=== PATIENT | male | born 1970 | race Caucasian/White ===

== ENCOUNTER 2018-08-02 09:03 | Emergency (ER) | payer BC ==
[2018-08-02] MEDS ORDERED: LIDOCAINE 5% (700 MG) TRANSDERMAL ADH..PATCH TP ONE (09:36)
[2018-08-02] MEDS ORDERED: HYDROMORPHONE HCL INJ/PF 2 MG/ML AMPULE IM ONE (09:36)
[2018-08-02] MEDS ORDERED: KETOROLAC TROMETHAMINE 60 MG/2 ML SDV IM ONE (09:36)
--- NOTE | 2018-08-02 09:40 | ER Document Report ---
HPI - HPI Patient complains to provider of: Low back pain Time Seen by Provider: 08/02/18 09:22 Onset: Last week Onset/Duration: Worse Quality of pain: Sharp Pain Level: 5 Context: Patient has a history of chronic low back pain and received a nerve block procedure per his pain management doctor on 07/26/2018 and 07/30/2018. Patient states that the pain initially was better after the injections and then after the medicine wore off he had much more severe pain. Patient states that he saw his pain management doctor yesterday and they gave him a shot of Toradol. Gisselle ross denies any improvement of his pain symptoms. Patient denies any fever or urinary symptoms. Patient does complain of radicular pain to the anterior aspect of his right leg. Patient denies any paresthesia. Patient states that he called his pain management office but the provider had not yet arrived today. Patient denies any new injury or fever. Associated Symptoms: Other - Low back pain, right leg pain. denies: Fever Exacerbated by: Standing, Movement, Walking Relieved by: Denies Similar symptoms previously: Yes Recently seen / treated by doctor: Yes - ROS ROS below otherwise negative: Yes Systems Reviewed and Negative: Yes All other systems reviewed and negative - CONSTITUTIONAL Constitutional: DENIES: Fever, Chills - NEURO Neurology: DENIES: Weakness - GASTROINTESTINAL Gastrointestinal: DENIES: Nausea - URINARY Urinary: DENIES: Dysuria, Urgency, Frequency - MUSCULOSKELETAL Musculoskeletal: REPORTS: Extremity pain, Back Pain. DENIES: Neck Pain - DERM Skin Color: Normal Skin Problems: None Past Medical History - General Information source: Patient - Social History Smoking Status: Never Smoker Frequency of alcohol use: None Drug Abuse: None Occupation: None Lives with: Family Family History: Reviewed & Not Pertinent - Past Medical History Cardiac Medical History: Reports: Hx Hypertension Endocrine Medical History: Reports: Hx Diabetes Mellitus Type 2 GI Medical History: Reports: Hx Irritable Bowel Musculoskeletal Medical History: Reports Other - Chronic back pain Past Surgical History: Reports: Hx Herniorrhaphy, Hx Inguinal Hernia, Hx Neurologic Surgery - Carpal tunnel, Other - Left knee syndrome, colectomy, UroLift Vertical Provider Document - CONSTITUTIONAL Agree With Documented VS: Yes Exam Limitations: No Limitations General Appearance: WD/WN, No Apparent Distress Notes: PHYSICAL EXAMINATION: GENERAL: Well-appearing, well-nourished and in no acute distress. HEAD: Atraumatic, normocephalic. EYES: sclera clear, anicteric, conjunctiva are normal. ENT: nares patent, Moist mucous membranes. NECK: Normal range of motion, supple no lymphadenopathy LUNGS: respirations unlabored HEART: Regular rate and rhythm without murmurs EXTREMITIES: Normal range of motion, no pitting or edema. No cyanosis. Gait normal, pt ambulates without difficulty BACK: Right lower lumbar paraspinal tenderness, no midline tenderness, mild ecchymosis around right paraspinal lumbar injection site, no overlying erythema. No deformities or step-offs. No CVA tenderness. NEUROLOGICAL: Cranial nerves grossly intact. Normal speech, normal gait. No saddle anesthesia. 2+ bilateral patellar reflexes PSYCH: Normal mood, normal affect. SKIN: Warm, Dry, normal turgor, no rashes or lesions noted. - INFECTION CONTROL TRAVEL OUTSIDE OF THE [place] IN LAST 30 DAYS: No Course - Re-evaluation Re-evalutation: 08/02/18 10:[address] Dunbar who recommends consultation with [facility] regarding patient's disposition and plan of care at this time. Consulted with patient's provider Dr. Arvizu who states that his injection sites looked fine and that all he had was a facet injection with lidocaine, states that we can give him a Medrol Dosepak and advised him that he can walk in the office on Sunday for further evaluation. States advising patient that he can come to the office at any point as there is always someone in the office working that can see him. No additional testing advised at this time. - Vital Signs Vital signs: Temp Pulse Resp BP Pulse Ox 98.3 F 80 16 127/66 H 97 08/02/18 09:09 08/02/18 09:09 08/02/18 09:09 08/02/18 09:09 08/02/18 09:09 Discharge - Discharge Clinical Impression: Chronic low back pain Qualifiers: Back pain laterality: right Sciatica presence: with sciatica Sciatica laterality: sciatica of right side Qualified Code(s): M54.41 - Lumbago with sciatica, right side Condition: Stable Disposition: HOME, SELF-CARE Instructions: Chronic Back Pain ([facility]), Ice Packs ([facility]), Low Back Pain ([facility]), Pain Medication Injection ([facility]) Additional Instructions: Return immediately for any new or worsening symptoms Followup with your primary care provider, call tomorrow to make a followup appointment Follow-up with your pain management doctor on Sunday. You can walk into the office Sunday morning for evaluation. Prescriptions: Methylprednisolone [Medrol Dosepack (4 mg/Tab) 21 Tab/Dosepak] 4 mg PO ASDIR PRN #21 tab.ds.pk PRN Reason: Referrals: RAEGAN HERNANDEZ PA-C [Primary Care Provider] - Follow up as needed [facility] [Provider Group] - Follow up as needed
[2018-08-02 11:05] VITALS: BP 106/57
== END 2018-08-02 11:06 | disposition home or self-care (01) ==
LOC: ER 09:03
DX: M54.41 Lumbago with sciatica, right side (principal); I10 Essential (primary) hypertension; E11.9 Type 2 diabetes mellitus without complications
CPT/HCPCS: 99283; 96372; J1885; J1170

== ENCOUNTER → 2019-11-15 | Outpatient (CLI) | payer BC ==
--- NOTE | 2019-11-15 18:04 | RADIOLOGY REPORT (SQ) ---
EXAM DESCRIPTION: MRI LUMBAR SPINE WITHOUT IMAGES COMPLETED DATE/TIME: 11/15/2019 10:06 am REASON FOR STUDY: (M54.16)RADICULOPATHY, LUMBAR REGION M54.16 RADICULOPATHY, LUMBAR REGION COMPARISON: None. TECHNIQUE: Sagittal and Axial imaging includes T1, T2, STIR and gradient echo sequences. Coronal T2/ HASTE imaging. LIMITATIONS: None. FINDINGS: VISUALIZED UPPER ABDOMEN: Limited evaluation. No acute or suspicious findings suggested. SEGMENTATION: No transitional anatomy. The lowest well-developed disc space is labeled L5-S1. ALIGNMENT: Anatomic. VERTEBRAE: Intact. BONE MARROW: Normal. No marrow replacement or reactive changes. DISC SIGNAL: Loss of height and T2 signal L4-5. POSTERIOR ELEMENTS: Generally intact. No pars defect evident. HARDWARE: None in the spine. CORD AND CONUS: Normal in size and signal intensity. Conus at the appropriate level. SOFT TISSUES: No aortic aneurysm seen. No bulky retroperitoneal adenopathy or mass. No paraspinal mas s or fluid. L1-L2: No significant spinal stenosis or exit foraminal stenosis. L2-L3: No significant spinal stenosis or exit foraminal stenosis. L3-L4: No significant spinal stenosis or exit foraminal stenosis. L4-L5: Broad-based disc bulge. Posterior element overgrowth. Moderate narrowing of both exit forami na and mild central canal stenosis. L5-S1: No significant spinal stenosis or exit foraminal stenosis. LOWER THORACIC: Incompletely imaged. No stenosis seen. SACRUM: Visualized upper sacrum intact. OTHER: No other significant findings. IMPRESSION: L4-5 with moderate narrowing of the exit foramina and mi central canal stenosis. TECHNICAL DOCUMENTATION: JOB ID: [id number] [employer]- All Rights Reserved Reading location - IP/workstation name: [email or web address]
== END ==
LOC: RAD 08:50
PROVIDERS: ATTEND Pain Medicine Pain Medicine
DX: M54.16 Radiculopathy, lumbar region (principal)
CPT/HCPCS: 72148

== ENCOUNTER 2019-12-11 07:01 | Day surgery (SDC) | payer OTHER, BC ==
[2019-12-04 11:50] LABS: ABSOLUTE EOSINOPHILS # (AUTO) 0.1 10^3/uL (0.0-0.6); ABSOLUTE LYMPHOCYTES (AUTO) 1.8 10^3/uL (0.5-4.7); ABSOLUTE MONOCYTES (AUTO) 0.5 10^3/uL (0.1-1.4); ABSOLUTE NEUT (AUTO) 4.8 10^3/uL (1.7-8.2); BASOPHILS % (AUTO) 0.4 % (0-2); HEMOGLOBIN 14.5 g/dL (13.5-17.0); LYMPHOCYTES % (AUTO) 24.9 % (13-45); MEAN CORPUSCULAR HEMOGLOBIN 30.8 pg (27.0-33.4); MEAN CORPUSCULAR HGB CONC 35.3 g/dL (32.0-36.0); MEAN CORPUSCULAR VOLUME 87 fl (80-97); MONOCYTES % (AUTO) 6.7 % (3-13); PLATELET COUNT 168 10^3/uL (150-450); RED CELL DISTRIBUTION WIDTH 12.6 % (11.5-14.0); TOTAL CELLS COUNTED % (AUTO) 100 %; WHITE BLOOD COUNT 7.2 10^3/uL (4.0-10.5)
[2019-12-04 12:21] LABS: ANION GAP 11 (5-19); BLOOD UREA NITROGEN 14 mg/dL (7-20); CARBON DIOXIDE 29 mmol/L (22-30); CHLORIDE 98 mmol/L (98-107); GLUCOSE 87 mg/dL (75-110); POTASSIUM 4.2 mmol/L (3.6-5.0)
--- NOTE | 2019-12-04 13:45 | EKG REPORT ---
SEVERITY:- NORMAL ECG - SINUS RHYTHM : Confirmed by: Ronny Son MD 04-Dec-2019 13:45:00
[~2019-12-11 07:01] MED LIST: CEFAZOLIN 2 GM/D5W RTU 2 GM/50 ML RTUPB IV PRN; LACTATED RINGERS 1000 ML IV PRN; LIDOCAINE 0.5% INJ-PF (5 MG/ML) 50 ML SDV SUBCUT PRN
[2019-12-11] MEDS ORDERED: CEFAZOLIN 2 GM/D5W RTU 2 GM/50 ML RTUPB IV ONE (07:10)
[2019-12-11 07:56] LABS: POTASSIUM 4.1 mmol/L (3.6-5.0)
[2019-12-11] MEDS ORDERED: LIDOCAINE 2% INJ-PF (20 MG/ML) 10 ML AMPUL ONE (08:35)
[2019-12-11] MEDS ORDERED: FENTANYL CITRATE INJ/PF 100 MCG/2 ML AMPUL ONE (08:35)
[2019-12-11] MEDS ORDERED: MIDAZOLAM 2 MG/2 ML INJ ONE (08:36)
[2019-12-11] MEDS ORDERED: PROPOFOL INJ 200 MG/20 ML VIAL IV ONE (08:36)
[2019-12-11] MEDS ORDERED: BUPIVACAINE INJ/PF LIPOSOME/PF 266 MG/20 ML SDV ONE (08:41)
[2019-12-11] MEDS ORDERED: FENTANYL CITRATE INJ/PF 100 MCG/2 ML AMPUL IV PRN ×3 (09:26)
[2019-12-11] MEDS ORDERED: DIPHENHYDRAMINE HCL 50 MG/ML VIAL IV PRN (09:26)
[2019-12-11] MEDS ORDERED: MEPERIDINE HCL/PF INJ 25 MG/1 ML DISP.SYRIN IV PRN (09:26)
[2019-12-11] MEDS ORDERED: MORPHINE SULFATE 10 MG/ML INJ IV PRN (09:26)
--- NOTE | 2019-12-11 10:05 | Operative Report ---
Nonrecallable Operative Report DATE OF SURGERY: 12/11/19 PREOPERATIVE DIAGNOSIS: Recurrent right inguinal hernia POSTOPERATIVE DIAGNOSIS: Recurrent right inguinal hernia OPERATION: Right groin exploration and repair of recurrent right inguinal hernia SURGEON: ROB NASH 1ST COACH TOUR DRIVER: DANILO MELLO ANESTHESIA: GA - Aiden TISSUE REMOVED OR ALTERED: None COMPLICATIONS: None INTRAOPERATIVE FINDINGS: Direct inguinal hernia PROCEDURE: Patient was brought to the operating awake alert stable condition placed in the operative table supine position induced under general anesthesia. After appropriate timeout and site verification the procedure commenced. Using a 10 blade a transverse incision was made in the right groin crease dissection was carried down through subcutaneous tissue with Bovie cautery. The external oblique fascia was opened in line with its fibers after was incised with a 10 blade. The cord was identified and was mobilized from the inguinal floor slung with a [place] drain. Patient had a lot of swelling in the medial aspect of the incision and it appeared that he had a direct inguinal hernia component that was not previously repaired. Or could have occurred since his laparoscopic hernia repair. The area of the direct inguinal component was mobilized with some fat within the hernia defect which was excised. We then used a piece of polypropylene mesh that was preformed mesh with a hole for the cord structures. It was fixed medially to the conjoined tendon laterally to the Poupart's ligament. This was done with 0 Ethibond sutures. The cord was examined for a hernia sac there was none. After fixation of the mass the Grover's fascia was reapproximated with interrupted 3-0 Vicryl and skin was reapproximated intracuticular 3-0 Biosyn Steri-Strips completed the procedure. Estimated blood loss was less than 10 cc sponge needle counts correct x2. LUIS Vizcaino was present for the entire procedure for help with wound retraction wound closure.
[2019-12-11] MEDS ORDERED: OXYCODONE-ACETAMINOPHEN 5-325 MG TABLET PO PRN (10:07)
--- NOTE | 2019-12-11 10:07 | Discharge Summary ---
Discharge Summary (SDC) - Discharge Final Diagnosis: right inguinal hernia Date of Surgery: 12/11/19 Discharge Date: 12/11/19 Condition: Good Prescriptions: Ibuprofen [Motrin 800 mg Tablet] 800 mg PO Q8H PRN #30 tab PRN Reason: Referrals: RAEGAN HERNANDEZ PA-C [Primary Care Provider] - Discharge Diet: As Tolerated Discharge Activity: No Lifting Over 10 Pounds Report the Following to Your Physician Immediately: Shortness of Breath, Nausea, Vomiting, Increase in Pain, Unusual Bleeding
[2019-12-11] MEDS ORDERED: ATROPINE SULFATE INJ 1 MG/10 ML DISP.SYRIN IV ONE (10:17)
[2019-12-11] MEDS: FENTANYL CITRATE INJ/PF 100 MCG/2 ML AMPUL ONE ×2 (10:22→10:27)
[2019-12-11] MEDS ORDERED: OXYCODONE-ACETAMINOPHEN 5-325 MG TABLET ONE (10:53)
[2019-12-11 13:18] VITALS: BP 110/69
[2019-12-11] MEDS ORDERED: ONDANSETRON HCL INJ/PF 4 MG/2 ML SDV ONE (15:37)
[2019-12-11] MEDS ORDERED: KETOROLAC TROMETHAMINE 60 MG/2 ML SDV ONE (15:37)
[2019-12-11] MEDS ORDERED: ROCURONIUM BROMIDE INJ 50 MG/5 ML VIAL IV ONE (15:37)
[2019-12-11] MEDS ORDERED: DEXAMETHASONE SOD PHOSPHATE INJ 4 MG/1 ML VIAL ONE (15:37)
[2019-12-11] MEDS ORDERED: GLYCOPYRROLATE 1 MG/5 ML VIAL ONE (15:37)
[2019-12-11] MEDS ORDERED: NEOSTIGMINE METHYLSULFATE 10 MG/10 ML VIAL ONE (15:37)
== END 2019-12-11 12:00 | disposition home or self-care (01) ==
LOC: OROUT 07:01
PROVIDERS: ATTEND Surgery
DX: K40.91 Unilateral inguinal hernia, without obstruction or gangrene, recurrent (principal); Z03.818 Encounter for observation for suspected exposure to other biological agents ruled out; I10 Essential (primary) hypertension; E11.9 Type 2 diabetes mellitus without complications; E78.00 Pure hypercholesterolemia, unspecified; K21.9 Gastro-esophageal reflux disease without esophagitis; Z79.899 Other long term (current) drug therapy; Z79.84 Long term (current) use of oral hypoglycemic drugs; Z79.82 Long term (current) use of aspirin
CPT/HCPCS: 93005; 36415 ×2; 82947; 84132; 85025; 87635; 80048; 83036; 93010; 00830; 49520; C1781; J2250; J0461; J3490 ×3; J1100; J1885; J3010; J2710; J2405; J2704; J0690; C9290; C9803; 830

== ENCOUNTER 2019-12-24 20:48 | Emergency (ER) | payer OTHER, BC ==
[2019-12-24] MEDS ORDERED: ONDANSETRON HCL INJ/PF 4 MG/2 ML SDV IV ONE (21:32)
[2019-12-24] MEDS ORDERED: MORPHINE SULFATE 10 MG/ML INJ IV ONE (21:32)
--- NOTE | 2019-12-24 21:34 | ER Document Report ---
ED Medical Screen (RME) - General Chief Complaint: Post Surgical Pain Stated Complaint: POST OP PAIN-ABDOMINAL PAIN Time Seen by Provider: 12/24/19 21:24 Primary Care Provider: RAEGAN HERNANDEZ PA-C [Primary Care Provider] - Follow up as needed TRAVEL OUTSIDE OF THE [place] IN LAST 30 DAYS: No - HPI Notes: 12/24/19 21:32 49-year-old male to the emergency department with complaints of progressively worsening postop abdominal pain over the last week. On December 10 he had an inguinal hernia repair by Dr. Kang. He states the first week he did pretty well and was vomiting up and up but then he started to feel pain in his right lower quadrant. He states that he has not had any fevers. He has had nausea but no vomiting. Called Dr. Kang's office and they thought that perhaps it was incisional swelling. He has been to see Dr. Kang on Sunday for postop appointment. He states that the pain got significant enough today that he did not feel comfortable waiting any longer to be seen. His last bowel movement was this morning and normal. He states he had a little bit of constipation directly after the surgery but has not had a lot of trouble since then. He has been pain management and takes Percocet 5 mg. His last dose of Percocet was at 5 PM today. I performed a brief medical screening exam on the patient determined that the patient needs further evaluation and management by main side provider. I have placed initial orders to help expedite care. - Related Data Allergies/Adverse Reactions: No Known Allergies Allergy (Verified 12/11/19 07:07) Past Medical History - Past Medical History Cardiac Medical History: Reports: Hx Hypercholesterolemia, Hx Hypertension Denies: Hx Coronary Artery Disease, Hx Heart Attack Pulmonary Medical History: Denies: Hx Asthma, Hx Bronchitis, Hx COPD, Hx Pneumonia Neurological Medical History: Denies: Hx Cerebrovascular Accident, Hx Seizures Endocrine Medical History: Reports: Hx Diabetes Mellitus Type 2 Renal/ Medical History: Denies: Hx Peritoneal Dialysis GI Medical History: Reports: Hx Irritable Bowel Musculoskeltal Medical History: Reports Hx Arthritis Past Surgical History: Reports: Hx Abdominal Surgery - Stomach surgery, Hx Herniorrhaphy, Hx Inguinal Hernia, Hx Neurologic Surgery - Carpal tunnel, Hx Urinary Tract Surgery - Uro Lifet procedure, Other - Left knee syndrome, colectomy, UroLift - Immunizations Hx Diphtheria, Pertussis, Tetanus Vaccination: Yes Physical Exam - Vital signs Vitals: Temp Pulse Resp BP Pulse Ox 97.7 F 83 20 119/62 97 12/24/19 20:56 12/24/19 20:56 12/24/19 20:56 12/24/19 20:56 12/24/19 20:56 Course - Vital Signs Vital signs: Temp Pulse Resp BP Pulse Ox 97.7 F 83 20 119/62 97 12/24/19 20:56 12/24/19 20:56 12/24/19 20:56 12/24/19 20:56 12/24/19 20:56 Doctor's Discharge - Discharge Referrals: RAEGAN HERNANDEZ PA-C [Primary Care Provider] - Follow up as needed
[2019-12-24 22:18] LABS: ABSOLUTE EOSINOPHILS # (AUTO) 0.2 10^3/uL (0.0-0.6); ABSOLUTE LYMPHOCYTES (AUTO) 2.5 10^3/uL (0.5-4.7); ABSOLUTE MONOCYTES (AUTO) 0.6 10^3/uL (0.1-1.4); ABSOLUTE NEUT (AUTO) 6.7 10^3/uL (1.7-8.2); BASOPHILS % (AUTO) 0.3 % (0-2); EOSINOPHILS % (AUTO) 1.6 % (0-6); HEMATOCRIT 38.4 % (37.9-51.0); HEMOGLOBIN 13.7 g/dL (13.5-17.0); LYMPHOCYTES % (AUTO) 25.3 % (13-45); MEAN CORPUSCULAR HEMOGLOBIN 31.2 pg (27.0-33.4); MEAN CORPUSCULAR HGB CONC 35.8 g/dL (32.0-36.0); MEAN CORPUSCULAR VOLUME 87 fl (80-97); PLATELET COUNT 219 10^3/uL (150-450); SEGMENTED NEUTROPHILS % (AUTO) 66.8 % (42-78); TOTAL CELLS COUNTED % (AUTO) 100 %; WHITE BLOOD COUNT 10.1 10^3/uL (4.0-10.5)
[2019-12-24 22:40] LABS: ALBUMIN 4.4 g/dL (3.5-5.0); ALKALINE PHOSPHATASE 60 U/L (38-126); ANION GAP 12 (5-19); ASPARTATE AMINO TRANSFERASE 21 U/L (17-59); BILIRUBIN,DIRECT 0.3 mg/dL (0.0-0.4); BILIRUBIN,TOTAL 0.4 mg/dL (0.2-1.3); BLOOD UREA NITROGEN 10 mg/dL (7-20); CALCIUM 9.6 mg/dL (8.4-10.2); CARBON DIOXIDE 27 mmol/L (22-30); CHLORIDE 93 mmol/L (98-107); GLUCOSE 123 mg/dL (75-110); POTASSIUM 3.5 mmol/L (3.6-5.0); TOTAL PROTEIN 6.8 g/dL (6.3-8.2)
--- NOTE | 2019-12-24 23:11 | RADIOLOGY REPORT (SQ) ---
CLINICAL INDICATION: post op right inguinal hernia pain. . TECHNIQUE: Contrast enhanced spiral axial CT imaging was obtained of the abdomen and pelvis with multiplanar reconstructions. This exam was performed according to our departmental dose-optimization program, which includes automated exposure control, adjustment of the mA and/or kV according to patient size and/or use of iterative reconstruction techniques. COMPARISON: None. CORRELATION: None. FINDINGS: Abdomen: The lung bases are grossly clear. The heart is of normal size. No evidence of pleural or pericardial fluid. The liver is of normal size contour and attenuation. The gallbladder is nondistended without inflammatory change. The pancreas is unremarkable. The spleen is unremarkable. The adrenals are unremarkable. The kidneys appear grossly normal without evidence of urolithiasis or hydronephrosis. There is no evidence of free air. No free fluid. No bulky adenopathy. Abdominal aorta is nonaneurysmal. Pelvis: The bowel is nonobstructed. The bowel is unopacified with oral contrast. Pelvic contents demonstrate postsurgical change. Please correlate with history. The appendix is not seen. Expected postsurgical changes seen from right herniorrhaphy. There is a small subcutaneous crescentic fluid collection in this distribution. Presumed postoperative seroma series 3 image 94 measuring 1.6 x 5.8 cm in greatest cross-sectional dimension. No surrounding inflammatory change.. Visualized bones are unremarkable. IMPRESSION: Presumed small postoperative seroma from the right herniorrhaphy. No inflammatory change.
[2019-12-25] MEDS ORDERED: MORPHINE SULFATE 10 MG/ML INJ IV ONE ×2 (00:44→03:11)
[2019-12-25] MEDS ORDERED: ONDANSETRON HCL INJ/PF 4 MG/2 ML SDV IV ONE (00:45)
[2019-12-25] MEDS ORDERED: NORMAL SALINE 1000 ML 1,000 ML IV ONE (01:16)
--- NOTE | 2019-12-25 01:17 | ER Document Report ---
ED General - General Chief Complaint: Post Surgical Pain Stated Complaint: POST OP PAIN-ABDOMINAL PAIN Time Seen by Provider: 12/24/19 21:24 Primary Care Provider: RAEGAN HERNANDEZ PA-C [Primary Care Provider] - Follow up as needed TRAVEL OUTSIDE OF THE [place] IN LAST 30 DAYS: No - HPI Notes: Patient is a 49-year-old male who presents to the emergency department for evaluation of postoperative pain. He had a right inguinal hernia repair performed by Dr. Kang on December 10. This was in fact a recurrent hernia. He was sent home with Percocet. He has developed increased inguinal pain. He states it has been getting progressively worse. He has had examination by nurse and Dr. Kang's office, as well as phone consultation. They explained it was most likely incisional, and he has an appointment on Sunday, but he states the pain became so severe he thought he should come to the ER for further evaluation. He has had some associated nausea but no vomiting. He had a normal bowel movement earlier today. He is passing gas. He does relate some urinary frequency, that he states has been present for some time, but seems worse since the surgery. No fevers or chills. - Related Data Allergies/Adverse Reactions: No Known Allergies Allergy (Verified 12/11/19 07:07) Home Medications: List reviewed Past Medical History - General Information source: Patient - Social History Smoking Status: Never Smoker Family History: Reviewed & Not Pertinent, DM, Malignancy - Past Medical History Cardiac Medical History: Reports: Hx Hypercholesterolemia, Hx Hypertension Denies: Hx Coronary Artery Disease, Hx Heart Attack Pulmonary Medical History: Denies: Hx Asthma, Hx Bronchitis, Hx COPD, Hx Pneumonia Neurological Medical History: Denies: Hx Cerebrovascular Accident, Hx Seizures Endocrine Medical History: Reports: Hx Diabetes Mellitus Type 2 Renal/ Medical History: Reports: Hx Kidney Stones. Denies: Hx Peritoneal Dialysis GI Medical History: Reports: Hx Gastroesophageal Reflux Disease, Hx Irritable Bowel Musculoskeletal Medical History: Reports Hx Arthritis Past Surgical History: Reports: Hx Abdominal Surgery - Osmel fundoplication, Hx Herniorrhaphy, Hx Inguinal Hernia, Hx Neurologic Surgery - Carpal tunnel, Hx Urinary Tract Surgery - Uro Lift procedure, Other - Left knee syndrome, colectomy, UroLift - Immunizations Hx Diphtheria, Pertussis, Tetanus Vaccination: Yes Review of Systems - Review of Systems Constitutional: No symptoms reported EENT: No symptoms reported Cardiovascular: No symptoms reported Respiratory: No symptoms reported Gastrointestinal: See HPI Genitourinary: See HPI Musculoskeletal: No symptoms reported Skin: No symptoms reported Neurological/Psychological: No symptoms reported Physical Exam - Vital signs Vitals: Temp Pulse Resp BP Pulse Ox 97.7 F 83 20 119/62 97 12/24/19 20:56 12/24/19 20:56 12/24/19 20:56 12/24/19 20:56 12/24/19 20:56 - Notes Notes: Vital signs reviewed, please refer to chart. Head is normocephalic, atraumatic. Pupils equal round, reactive to light. Neck is supple without meningismus. Heart is regular rate and rhythm. Lungs are clear to auscultation bilaterally. Abdomen is obese with suprapubic tenderness noted, no rebound or guarding, norm oactive bowel sounds throughout. Well approximated horizontally oriented scar in the low pelvis consistent with recent right inguinal hernia repair. Steri- Strips still in place. The area does show some significant tenderness, palpable firmness, consistent with likely seroma, without any signs of dehiscence, erythema. Extremities without cyanosis, clubbing. Posterior calves are nontender. Peripheral pulses are equal. Skin is warm and dry. Patient is awake, alert, neurological exam is nonfocal. Course - Re-evaluation Re-evalutation: 12/25/19 01:16 Patient presents to the emergency department for evaluation. He was complaining of postoperative pain. He was initially seen through triage, where lab work and a CT scan with contrast was ordered. Patient's laboratory investigations are largely unremarkable. He did have a mild hyponatremia, given IV fluids. I am still awaiting a urinalysis, as he was complaining of some urinary frequency. CT scan was remarkable only for a seroma. I suspect that this is the etiology of the patient's pain. He still has Percocet. He has a follow-up with Dr. Kang on Sunday. We will reassess for response. 12/25/19 03:10 Patient still with some pain, but he is feeling slightly improved. Urinalysis failed to reveal any significant abnormalities. At this point he has a follow- up appointment with his surgeon in less than 24 hours. He feels comfortable with discharge and follow-up as an outpatient. He is to return to the ED with worsening. - Vital Signs Vital signs: Temp Pulse Resp BP Pulse Ox 97.4 F 63 16 109/62 98 12/25/19 02:13 12/25/19 02:13 12/25/19 02:13 12/25/19 02:13 12/25/19 02:13 - Laboratory Result Diagrams: 12/24/19 21:55 12/24/19 21:55 Laboratory results interpreted by me: 12/24/19 21:55 Sodium 132.4 L Potassium 3.5 L Chloride 93 L Glucose 123 H - Diagnostic Test Radiology reviewed: Reports reviewed Radiology results interpreted by me: 12/25/19 03:10 Abdomen/Pelvis CT 12/24/19 21:31 IMPRESSION: Presumed small postoperative seroma from the right herniorrhaphy. No inflammatory change. Discharge - Discharge Clinical Impression: Postoperative abdominal pain, Seroma after procedure Condition: Stable Disposition: HOME, SELF-CARE Instructions: Abdominal Pain ([facility]) Additional Instructions: Continue your home medications as prescribed. Stay well-hydrated. Follow-up with your surgeon as scheduled on Sunday. If you develop worsening or new concerning symptoms of any sort, please return immediately to the emergency department for evaluation. Referrals: RAEGAN HERNANDEZ PA-C [Primary Care Provider] - Follow up as needed
[2019-12-25 02:24] LABS: APPEARANCE,URINE CLEAR; BILIRUBIN,URINE NEGATIVE (NEGATIVE); COLOR,URINE COLORLESS; GLUCOSE, URINE NEGATIVE (NEGATIVE); KETONES,URINE NEGATIVE (NEGATIVE); LEUKOCYTE ESTERASE,URINE NEGATIVE (NEGATIVE); NITRITE,URINE NEGATIVE (NEGATIVE); PROTEIN,URINE NEGATIVE (NEGATIVE); URINE SPECIFIC GRAVITY 1.012; UROBILINOGEN,URINE NEGATIVE mg/dL (<2.0)
[2019-12-25 03:29] VITALS: BP 107/67
== END 2019-12-25 03:30 | disposition home or self-care (01) ==
LOC: ER 20:48
DX: L76.34 Postprocedural seroma of skin and subcutaneous tissue following other procedure (principal); Y83.8 Other surgical procedures as the cause of abnormal reaction of the patient, or of later complication, without mention of misadventure at the time of the procedure; R10.9 Unspecified abdominal pain; G89.18 Other acute postprocedural pain; R11.0 Nausea; E87.1 Hypo-osmolality and hyponatremia; R35.0 Frequency of micturition
CPT/HCPCS: 96376; 99285; 96361; 96374; 96375; 36415; 85025; 80053; 81001; 74177; J2270; J2405; J7030

== ENCOUNTER 2020-04-06 05:37 | Day surgery (SDC) | payer OTHER, BC ==
[2020-03-31 11:52] LABS: HEMATOCRIT 39.4 % (37.9-51.0); HEMOGLOBIN 13.9 g/dL (13.5-17.0); MEAN CORPUSCULAR HEMOGLOBIN 30.1 pg (27.0-33.4); MEAN CORPUSCULAR HGB CONC 35.3 g/dL (32.0-36.0); MEAN CORPUSCULAR VOLUME 85 fl (80-97); PLATELET COUNT 181 10^3/uL (150-450); RED BLOOD COUNT 4.61 10^6/uL (4.35-5.55); WHITE BLOOD COUNT 6.1 10^3/uL (4.0-10.5)
[~2020-04-06 05:37] MED LIST changes: +ACETAMINOPHEN 325 MG TABLET PO PRN; +CEFAZOLIN 2 GM/D5W RTU 2 GM/50 ML RTUPB IV ONE; -CEFAZOLIN 2 GM/D5W RTU 2 GM/50 ML RTUPB IV PRN
[2020-04-06] MEDS ORDERED: EPHEDRINE SULFATE INJ 50 MG/1 ML AMPULE ONE (06:51)
[2020-04-06] MEDS ORDERED: FENTANYL CITRATE INJ/PF 100 MCG/2 ML AMPUL ONE (06:51)
[2020-04-06] MEDS ORDERED: MIDAZOLAM 2 MG/2 ML INJ ONE (06:51)
[2020-04-06] MEDS ORDERED: PROPOFOL INJ 200 MG/20 ML VIAL IV ONE (06:52)
[2020-04-06 06:53] LABS: POTASSIUM 3.7 mmol/L (3.6-5.0)
[2020-04-06] MEDS ORDERED: BUPIVACAINE INJ/PF LIPOSOME/PF 266 MG/20 ML SDV ONE (07:03)
[2020-04-06] MEDS: CEFAZOLIN SODIUM 2 GM in DEXTROSE 5%-WATER 100 ML IV PRN ×2 (07:40→07:43)
[2020-04-06] MEDS ORDERED: PROMETHAZINE HCL INJ 25 MG/1 ML VIAL IV PRN ×2 (07:44)
[2020-04-06] MEDS ORDERED: DIPHENHYDRAMINE HCL 50 MG/ML VIAL IV PRN (07:44)
[2020-04-06] MEDS ORDERED: MEPERIDINE HCL/PF INJ 25 MG/1 ML DISP.SYRIN IV PRN (07:44)
[2020-04-06] MEDS ORDERED: FENTANYL CITRATE INJ/PF 100 MCG/2 ML AMPUL IV PRN ×3 (07:44)
--- NOTE | 2020-04-06 08:42 | Operative Report ---
Nonrecallable Operative Report DATE OF SURGERY: 04/06/20 PREOPERATIVE DIAGNOSIS: recurrent left inguinal hernia POSTOPERATIVE DIAGNOSIS: same OPERATION: left inguinal hernia repair SURGEON: ROB DUNLAP ART THERAPY CERTIFIED SUPERVISOR: DANILO MELLO ANESTHESIA: GA TISSUE REMOVED OR ALTERED: lipoma of the chord COMPLICATIONS: none ESTIMATED BLOOD LOSS: 15cc INTRAOPERATIVE FINDINGS: see note PROCEDURE: Patient was brought to the operating awake alert stable condition placed on the operating table supine position induced under general anesthesia and intubated. Scrotum and lower abdomen and groins were prepped and draped in usual sterile fashion. After appropriate timeout and site verification the procedure commenced. Curvilinear incision was made in the left groin crease dissection was carried down through subcutaneous tissue and Grover's fascia with Bovie cautery the external oblique was identified. Retractors were placed the external oblique was opened in line with its fibers medial lateral flaps were retracted laterally the ilioinguinal nerve was identified and preserved. The cord was then dissected from the inguinal floor and slung with a [place] drain used for traction. We then began dissecting the cord structures away from the fibrofatty and cremasteric tissue of the cord and did not identify a indirect inguinal hernia sac. This dissection proceeded to the internal ring and we could identify the internal ring was tightly closed around the cord with the previously laparoscopically placed mesh that was palpable but there was no indirect inguinal hernia alongside the cord structures. However medially between the conjoined tendon and the pubic tubercle there was a week direct component of the inguinal hernia. Appeared that the laparoscopic mesh was slit away from the pubic symphysis and the patient had recurrent direct inguinal hernia. We therefore mobilized the cord structures then used a piece of polypropylene mesh and tacked that to the conjoined tendon medially and laterally to the Poupart's ligament and we continue that repair a Bassini type repair along the conjoined tendon and Poupart's ligament we created a slit in the mesh to allow the cord to sit on top of it and tacked the mesh proximally underneath the internal inguinal ring. Once this was completed we returned the cord to the floor and closed the external oblique with a running 2-0 Vicryl suture Grover's fascia was closed similarly and skin was closed with intrac uticular 4-0 Biosyn Steri-Strips completed the procedure. Estimated blood loss was less than 15 cc sponge needle counts correct x2 the patient was awakened in the operating room extubated transferred recovery in stable condition. LUIS Vizcaino was present for the entire procedure for help with wound retraction and wound closure.
[2020-04-06] MEDS ORDERED: OXYCODONE-ACETAMINOPHEN 5-325 MG TABLET PO PRN (08:44)
--- NOTE | 2020-04-06 08:44 | Discharge Summary ---
Discharge Summary (SDC) - Discharge Final Diagnosis: Recurrent left inguinal hernia Date of Surgery: 04/06/20 Discharge Date: 04/06/20 Condition: Good Referrals: RAEGAN HERNANDEZ PA-C [Primary Care Provider] - Discharge Diet: As Tolerated Discharge Activity: No Lifting Over 10 Pounds Report the Following to Your Physician Immediately: Shortness of Breath, Nausea, Vomiting, Unusual Bleeding - Follow-up appointment in surgical clinic in 2 to 3 weeks, Swelling
[2020-04-06] MEDS ORDERED: OXYCODONE-ACETAMINOPHEN 5-325 MG TABLET ONE (09:08)
[2020-04-06 10:27] VITALS: BP 117/66
[2020-04-06] MEDS ORDERED: LIDOCAINE 2% INJ-PF (20 MG/ML) 2 ML AMPUL ONE (12:12)
[2020-04-06] MEDS ORDERED: PHENYLEPHRINE HCL INJ/PF 10 MG/1 ML SDV ONE (12:12)
[2020-04-06] MEDS ORDERED: KETOROLAC TROMETHAMINE 60 MG/2 ML SDV ONE (12:12)
[2020-04-06] MEDS ORDERED: GLYCOPYRROLATE 1 MG/5 ML VIAL ONE (12:12)
[2020-04-06] MEDS ORDERED: ONDANSETRON HCL INJ/PF 4 MG/2 ML SDV ONE (12:12)
== END 2020-04-06 10:20 | disposition home or self-care (01) ==
LOC: OROUT 05:37
PROVIDERS: ATTEND Surgery
DX: K40.91 Unilateral inguinal hernia, without obstruction or gangrene, recurrent (principal); Z01.812 Encounter for preprocedural laboratory examination; Z20.828 Contact with and (suspected) exposure to other viral communicable diseases; Z86.010 Personal history of colon polyps; E11.9 Type 2 diabetes mellitus without complications; E78.00 Pure hypercholesterolemia, unspecified; K21.9 Gastro-esophageal reflux disease without esophagitis; Z79.899 Other long term (current) drug therapy; G89.29 Other chronic pain; M54.9 Dorsalgia, unspecified; M25.50 Pain in unspecified joint; Z79.84 Long term (current) use of oral hypoglycemic drugs; Z98.890 Other specified postprocedural states; I10 Essential (primary) hypertension
CPT/HCPCS: 49520; 36415 ×2; 82947; 84132; 85027; 87635; J2250; J1885; J3010; J2370; J2405; J2704; J0690; C9290; J3490 ×2; C9803; C1781